=== PATIENT | male | born 1980 | race African-American/Black ===

== ENCOUNTER 2019-12-14 19:18 | Emergency (ER) | payer OTHER, MEDICARE ==
[~2019-12-14] VITALS: Ht 198.1 cm; Wt 108.9 kg
[2019-12-14 19:29] VITALS: BP 143/100
--- NOTE | 2019-12-14 19:43 | NUR ---
AT BEDSIDE FOR EVAL.
[2019-12-14] MEDS ORDERED: IBUPROFEN 600 MG TABLET PO ONE (19:56)
[2019-12-14] MEDS: IBUPROFEN 600 MG TABLET PO ONE (20:00)
--- NOTE | 2019-12-14 20:56 | NUR ---
Patient discharged to home in stable condition. Written and verbal after care instructions given. Patient verbalizes understanding of instruction.
== END 2019-12-14 20:57 | disposition home or self-care (01) ==
LOC: ER 19:24
DX: G89.29 Other chronic pain (principal); M54.5 Low back pain; K21.9 Gastro-esophageal reflux disease without esophagitis; I10 Essential (primary) hypertension; E78.5 Hyperlipidemia, unspecified; E11.9 Type 2 diabetes mellitus without complications; Z88.6 Allergy status to analgesic agent; Z59.0 Homelessness
CPT/HCPCS: 82962-TC